=== PATIENT | female | born 1975 | race Two or more races ===

== ENCOUNTER 2016-12-21 18:19 | Emergency (ER) | payer OTHER ==
[~2016-12-21 18:19] MED LIST: ANTI-DIARRHEA2 MG PO; CYCLOBENZAPRINE5 M1 PO; IBUPROFEN200 M3 PO; NORCO 5-325 TA1 EACH PO
[2016-12-21] MEDS ORDERED: TYLENOL EXTRA500 M1 PO (18:42)
[2016-12-21] MEDS ORDERED: TRAMADOL HCL50 M2 PO (19:06)
== END 2016-12-21 19:23 ==
LOC: EDMED 18:19
DX: G89.29 Other chronic pain (principal); M54.2 Cervicalgia; Z90.49 Acquired absence of other specified parts of digestive tract